=== PATIENT | male | born 1980 | race Hispanic/Latino ===

== ENCOUNTER 2021-05-28 11:40 | Emergency (ER) | payer SELFPAY ==
[2021-05-28] MEDS ORDERED: Lidocaine 1% w/Epinephrine 1:100K 20 ML VIAL ONE (11:55)
[2021-05-28] MEDS ORDERED: Boostrix 0.5 ML (Tdap) VIAL ONE (11:58)
== END 2021-05-28 12:15 | disposition home or self-care (01) ==
LOC: NAV ERS 11:40
DX: S61.511A Laceration without foreign body of right wrist, initial encounter (principal); F17.210 Nicotine dependence, cigarettes, uncomplicated; W26.9XXA Contact with unspecified sharp object(s), initial encounter
CPT/HCPCS: 12001; 90471; 90715